=== PATIENT | female | born 1990 | race Caucasian/White ===

== ENCOUNTER 2017-04-10 12:58 | Emergency (ER) | payer OTHER ==
[2017-04-10 13:18] VITALS: BP 100/53
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
[2017-04-10] MEDS ORDERED: FLEXERIL PO ONE (17:44)
[2017-04-10] MEDS ORDERED: NORCO 5/325 PO ONE (17:44)
== END 2017-04-10 19:34 | disposition home or self-care (01) ==
LOC: ED 12:58
DX: S09.90XA Unspecified injury of head, initial encounter (principal); G44.311 Acute post-traumatic headache, intractable; M54.2 Cervicalgia; V89.2XXA Person injured in unspecified motor-vehicle accident, traffic, initial encounter; Y93.9 Activity, unspecified; Y99.9 Unspecified external cause status; Y92.410 Unspecified street and highway as the place of occurrence of the external cause
CPT/HCPCS: 99282